=== PATIENT | male | born 1960 | race Caucasian/White ===

== ENCOUNTER 2024-05-16 07:51 | Emergency (ER) | payer BC ==
[~2024-05-16] VITALS: Ht 172.7 cm; Wt 64.0 kg
[2024-05-16] MEDS ORDERED: FLUORESCEIN SODIUM OPHTH 1 EA STRIP ONE (08:34)
[2024-05-16] MEDS ORDERED: TETRAcaine 5 ML BOTTLE ONE (08:36)
[2024-05-16] MEDS: TETRACAINE HCL 0.5% OPHTALMIC 15 ML BOTTLE EACHEYE ONE (08:37)
[2024-05-16] MEDS: FLUORESCEIN SODIUM OPHTH 1 EA STRIP OP ONE (08:37)
[2024-05-16] MEDS ORDERED: CYCLOPENTOLATE 1% OPHTHALMIC 2 ML BOTTLE ONE (09:03)
[2024-05-16] MEDS: CYCLOPENTOLATE 1% OPHTHALMIC 2 ML BOTTLE OP ONE (09:04)
[2024-05-16] MEDS ORDERED: PRED5DRO24 RIGHTEYE (09:15)
[2024-05-16 09:25] VITALS: BP 133/72; TEMP 98; O2SAT 98
== END 2024-05-16 09:25 | disposition home or self-care (01) ==
LOC: ER 08:08
DX: H57.11 Ocular pain, right eye (principal); H57.89 Other specified disorders of eye and adnexa